=== PATIENT | male | born 1965 | race Caucasian/White ===

== ENCOUNTER 2020-04-19 12:13 | Inpatient (IN) | payer BC, OTHER ==
[~2020-04-19 12:13] MED LIST: Iopamidol-370 76% 500 ML 1 ML ONE
[2020-04-19] MEDS ORDERED: cefTRIAXone\\ROCEPHIN 1 GM VIAL ONE (13:13)
[2020-04-19] MEDS ORDERED: Azithromycin 500 MG VIAL ONE (13:13)
[2020-04-19] MEDS ORDERED: Acetaminophen 500 MG TAB ONE (13:13)
[2020-04-19 13:50] LABS: #Lymphocytes 0.4 thou/uL (1.20-3.40); #Monocytes 0.5 thou/uL (0.11-0.59); #Neutrophils 4.5 thou/uL (1.40-6.50); %Basophils 0.1 % (0.0-1.0); %Eosinophils 0.1 % (0.0-10.0); %Lymphocytes 8.3 % (21.0-51.0); %Neutrophils 82.7 % (42.0-75.0); Hemoglobin 14.5 g/dL (14.0-18.0); Mean Corpuscular HGB CONC 33.8 g/dL (32.0-36.0); Mean Corpuscular Hemoglobin 31.1 pg (27.0-31.0); Mean Corpuscular Volume 91.9 fL (78.0-98.0); Mean Platelet Volume 7.8 fL (7.4-10.4); Platelet Count 172 thou/uL (130-400); RBC Distribution Width 11.8 % (11.5-14.5); Red Blood Cell (RBC) Count 4.66 mill/uL (4.70-6.10); White Blood Cell (WBC) Count 5.4 thou/uL (4.8-10.8)
[2020-04-19] MEDS ORDERED: Dexamethasone 4 mg/ml Vial ONE (14:13)
[2020-04-19 14:38] LABS: ALT (SGPT) 27 U/L (8-55); AST (SGOT) 37 U/L (5-34); Alkaline Phosphatase 47 U/L (40-110); Anion Gap 17 mmol/L (10-20); BUN (Urea Nitrogen) 11 mg/dL (8.4-25.7); Bilirubin, Total 0.7 mg/dL (0.2-1.2); Calc. Creatinine Clearance 0 mL/min (70-130); Calcium 8.4 mg/dL (7.8-10.44); Carbon Dioxide 22 mmol/L (22-29); Chloride 98 mmol/L (98-107); Globulin 2.6 g/dL (2.4-3.5); Glucose 140 mg/dL (70-105); Potassium 4.2 mmol/L (3.5-5.1); Protein, Total 6.6 g/dL (6.0-8.3); Sodium 133 mmol/L (136-145)
--- NOTE | 2020-04-19 15:08 | CT ---
CT ANGIO OF CHEST PERFORMED WITH IV CONTRAST ENHANCEMENT WITH 3D RECONSTRUCTIONS: Date: 04/19/2020 HISTORY: Cough, fever, and chills. Tested positive for COVID 1 week ago and has been getting worse. FINDINGS: There is fairly extensive bilateral lower lobe predominant ground-glass opacities. Relative sparing o f the right upper lobe. No pleural effusion. No significant mediastinal or hilar adenopathy. The thoracic aorta is normal in caliber. Good pulmonary artery opacification. No CT evidence for pulmonary embolus. Visualized liver parenchyma shows no focal findings. IMPRESSION: Diffuse ground-glass infiltrates compatible with COVID pneumonia. POS: NGOC
[2020-04-19 15:32] LABS: SARS-CoV-2 NAA Rapid Test DETECTED (NotDetected)
--- NOTE | 2020-04-19 16:16 | PDOC.HHP ---
Hospitalist HPI - History of Present Illness SOB History of Present Illness: Mr. Recinos is a 54-year-old male but the past medical history of hypertension, hyperlipidemia, tobacco use, alcohol use who presents with shortness of breath. Patient was tested positive for Covid 1 week ago and symptoms started also at that time. Patient reports that the past few days he has developed worsening shortness of breath and worsening fevers. Patient endorses dry cough, fevers, chills, malaise and body aches. Has been taking ibuprofen at home. He denies chest pain, palpitations. Denies changes in vision lower extremity swelling or numbness/weakness or paresthesias. Emergency room initial vital signs 153/85, 100, 30, 100.6, 94% on room air. Lactic acid 1.0, BNP 11.2. White blood cell count 5.4. H/H 14.5/42.8. BUN/CR 11/0.9. Glucose 140. Sodium 133, potassium 4.2. CT angiogram negative for any pulmonary embolism but did show findings of Covid pneumonia. Patient with new oxygen requirement of 2 L nasal cannula. Hospitalist Results - Labs Result Diagrams: 04/19/20 13:38 04/19/20 13:38 Lab results: WBC 5.4 thou/uL (4.8-10.8) 04/19/20 13:38 Hgb 14.5 g/dL (14.0-18.0) 04/19/20 13:38 Hct 42.8 % (42.0-52.0) 04/19/20 13:38 MCV 91.9 fL (78.0-98.0) 04/19/20 13:38 Plt Count 172 thou/uL (130-400) 04/19/20 13:38 Neutrophils % 82.7 % (42.0-75.0) H 04/19/20 13:38 Sodium 133 mmol/L (136-145) L 04/19/20 13:38 Potassium 4.2 mmol/L (3.5-5.1) 04/19/20 13:38 Chloride 98 mmol/L (98-107) 04/19/20 13:38 Carbon Dioxide 22 mmol/L (22-29) 04/19/20 13:38 BUN 11 mg/dL (8.4-25.7) 04/19/20 13:38 Creatinine 0.79 mg/dL (0.7-1.3) 04/19/20 13:38 Glucose 140 mg/dL (70-105) H 04/19/20 13:38 Lactic Acid 1.0 mmol/L (0.5-2.2) 04/19/20 13:38 Calcium 8.4 mg/dL (7.8-10.44) 04/19/20 13:38 Total Bilirubin 0.7 mg/dL (0.2-1.2) 04/19/20 13:38 AST 37 U/L (5-34) H 04/19/20 13:38 ALT 27 U/L (8-55) 04/19/20 13:38 Alkaline Phosphatase 47 U/L (40-110) 04/19/20 13:38 B-Natriuretic Peptide 11.2 pg/mL (0-100) 04/19/20 13:38 Serum Total Protein 6.6 g/dL (6.0-8.3) 04/19/20 13:38 Albumin 4.0 g/dL (3.5-5.0) 04/19/20 13:38 Hospitalist H&P A/P - Plan Plan: COVID-19 pneumonia 54year-old male with comorbidities of hypertension, hyperlipidemia, tobacco use, alcohol use who tested positive for Covid 1 week ago symptoms began approximately 8 days ago. Patient with worsening shortness of breath requiring oxygen. Currently saturating in 94% on 2 L nasal cannula. CTA negative for pulmonary embolism, but did show evidence of COVID-19 pneumonia. Lactic acid 1.0. Patient febrile to 100.6 with ibuprofen. Patient received Decadron, ceftriaxone, azithromycin in the emergency room. We will admit patient for moderate to severe COVID-19. Plan Continue dexamethasone Continue CAP coverage with ceftriaxone and azithromycin Supplemental oxygen We will see if candidate for remdesivir Tylenol, dextromethorphan Closely monitor respiratory status Acute respiratory failure with hypoxia Patient presented hypoxic and tachypneic to emergency room secondary to COVID-19 pneumonia. Patient with new oxygen requirement of 2 L nasal cannula. We will continue with plan as above and closely monitor respiratory status. Plan Treatment as above Closely monitor respiratory status Supplemental oxygen as needed Hypertension History of HTN. Patient not on any home mediations. Hyperlipidemia Hx of HLD. Not on any home medications. Tobacco use History of tobacco use. Will make nicotine patch available as needed. Patient counseled on smoking cessation. Alcohol dependence Patient reports daily alcohol use with 5-6 beers nightly. Last drink day prior to admission. Will place patient on ASE protocol supplement magnesium, thiamine, vitamin B12. Plan ASE protocol Vitamin B12, magnesium Thiamine DVT prophylaxisLovenox Full code Case discussed with Dr. Bowen.
[2020-04-19] MEDS ORDERED: Ondansetron ODT 4 MG TAB PO PRN (16:59)
[2020-04-19] MEDS ORDERED: Loperamide HCl 2 MG CAP PO PRN (16:59)
[2020-04-19 19:21] LABS: CRP (Inflammatory) 9.08 mg/dL (= or < 0.5); Magnesium 2.2 mg/dL (1.6-2.6)
[2020-04-19 20:58] VITALS: BMI 25.4
[2020-04-19] MEDS: Enoxaparin Sodium 40 MG/0.4 ML SYRINGE SC SCH (21:27)
[2020-04-20 06:01] LABS: Anion Gap 12 mmol/L (10-20); BUN (Urea Nitrogen) 11 mg/dL (8.4-25.7); Calc. Creatinine Clearance 129 mL/min (70-130); Calcium 8.5 mg/dL (7.8-10.44); Carbon Dioxide 26 mmol/L (22-29); Chloride 101 mmol/L (98-107); Glucose 150 mg/dL (70-105); Sodium 135 mmol/L (136-145)
[2020-04-20 07:22] LABS: Hemoglobin 14.6 g/dL (14.0-18.0); Mean Corpuscular HGB CONC 34.2 g/dL (32.0-36.0); Mean Corpuscular Hemoglobin 31.7 pg (27.0-31.0); Mean Corpuscular Volume 92.7 fL (78.0-98.0); Mean Platelet Volume 8.2 fL (7.4-10.4); Platelet Count 177 thou/uL (130-400); RBC Distribution Width 11.7 % (11.5-14.5)
[2020-04-20] MEDS ORDERED: Dexamethasone 4 MG TAB PO SCH (08:00)
[2020-04-20] MEDS: Enoxaparin Sodium 40 MG/0.4 ML SYRINGE SC SCH ×2 (08:40→19:49)
[2020-04-20] MEDS: Thiamine 100 MG TAB PO SCH (08:41)
[2020-04-20] MEDS: Cyanocobalamin (Vitamin B-12) 1,000 MCG TAB PO SCH (08:41)
[2020-04-20] MEDS: Ascorbic Acid 500 mg Chewable Tablet PO SCH (08:41)
[2020-04-20] MEDS ORDERED: ALPRAZolam 0.25 MG TAB PO PRN (09:42)
[2020-04-20 11:33] LABS: Band 15 % (5-11); Lymphocytes 15 % (21-51); MDiff Complete? YES; Monocytes 11 % (0-10); Neutrophil 50 % (42-75); Platelet Morphology Comment Appears Adequate; RBC Morphology Normal; Reactive Lymphocytes 9 % (0-10)
[2020-04-20] MEDS: Cholecalciferol 1,000 UNITS (25 MCG) TAB PO SCH (15:20)
[2020-04-20] MEDS: Acetaminophen 325 MG TAB PO PRN (18:05)
[2020-04-20 20:43] LABS: ALT (SGPT) 38 U/L (8-55); AST (SGOT) 36 U/L (5-34); Albumin 3.6 g/dL (3.5-5.0); Alkaline Phosphatase 45 U/L (40-110); Bilirubin, Direct 0.2 mg/dL (0.1-0.3); Bilirubin, Total 0.5 mg/dL (0.2-1.2); Protein, Total 6.6 g/dL (6.0-8.3)
[2020-04-20] MEDS ORDERED: REMDESIVIR (EUA) 200 MG in Sodium Chloride 0.9% 250 ML 210 ML IV SCH (22:00)
[2020-04-21] MEDS: Acetaminophen 325 MG TAB PO PRN ×2 (03:27→08:11)
[2020-04-21 05:31] LABS: #Lymphocytes 0.7 thou/uL (1.20-3.40); #Monocytes 0.6 thou/uL (0.11-0.59); #Neutrophils 4.9 thou/uL (1.40-6.50); %Eosinophils 0.1 % (0.0-10.0); %Lymphocytes 11.7 % (21.0-51.0); %Monocytes 9.9 % (0.0-10.0); %Neutrophils 78.2 % (42.0-75.0); Hemoglobin 13.6 g/dL (14.0-18.0); Mean Corpuscular HGB CONC 35.1 g/dL (32.0-36.0); Mean Corpuscular Hemoglobin 31.9 pg (27.0-31.0); Mean Corpuscular Volume 91.1 fL (78.0-98.0); Mean Platelet Volume 8.1 fL (7.4-10.4); Platelet Count 199 thou/uL (130-400); RBC Distribution Width 11.7 % (11.5-14.5); Red Blood Cell (RBC) Count 4.26 mill/uL (4.70-6.10); White Blood Cell (WBC) Count 6.3 thou/uL (4.8-10.8)
[2020-04-21 05:43] LABS: ALT (SGPT) 32 U/L (8-55); AST (SGOT) 28 U/L (5-34); Albumin 3.3 g/dL (3.5-5.0); Alkaline Phosphatase 39 U/L (40-110); Anion Gap 13 mmol/L (10-20); BUN (Urea Nitrogen) 15 mg/dL (8.4-25.7); Bilirubin, Direct 0.2 mg/dL (0.1-0.3); Bilirubin, Total 0.5 mg/dL (0.2-1.2); Calc. Creatinine Clearance 114 mL/min (70-130); Calcium 8.2 mg/dL (7.8-10.44); Carbon Dioxide 25 mmol/L (22-29); Chloride 100 mmol/L (98-107); Glucose 94 mg/dL (70-105); Potassium 3.2 mmol/L (3.5-5.1); Protein, Total 6.1 g/dL (6.0-8.3); Sodium 135 mmol/L (136-145)
[2020-04-21] MEDS: Folic Acid 1 MG TAB PO SCH (07:55)
[2020-04-21] MEDS: Cyanocobalamin (Vitamin B-12) 1,000 MCG TAB PO SCH (07:56)
[2020-04-21] MEDS: Dexamethasone 4 mg/ml Vial SLOW IVP SCH (07:56)
[2020-04-21] MEDS: Ascorbic Acid 500 mg Chewable Tablet PO SCH (07:56)
[2020-04-21] MEDS: Cholecalciferol 1,000 UNITS (25 MCG) TAB PO SCH (07:56)
[2020-04-21] MEDS: Enoxaparin Sodium 40 MG/0.4 ML SYRINGE SC SCH ×2 (07:56→21:46)
[2020-04-21] MEDS: Thiamine 100 MG TAB PO SCH (07:56)
--- NOTE | 2020-04-21 08:02 | PDOC.HOSPP ---
- Subjective Encounter Date: 04/20/20 Encounter Time: 12:45 Subjective: Patient up in bed denies any complaints. - Objective Vital Signs & Weight: Vital Signs (12 hours) Temp Pulse Resp BP Pulse Ox 04/21/20 03:50 92 L 04/21/20 03:20 102.6 F H 76 18 139/70 92 L 04/20/20 23:30 98.9 F 78 16 133/73 94 L Weight Admit Weight 177 lb 3.2 oz Weight 177 lb 3.2 oz I&O: 04/20/20 04/21/20 04/22/20 06:59 06:59 06:59 Intake Total 380 2100 Output Total 2200 Balance 380 -100 Result Diagrams: 04/21/20 04:58 04/21/20 04:58 Hospitalist ROS - Review of Systems Cardiovascular: denies: chest pain, palpitations, orthopnea, paroxysmal noc. dyspnea, edema, light headedness, other Gastrointestinal: denies: nausea, vomiting, abdominal pain, diarrhea, constip ation, melena, hematochezia, other Genitourinary: denies: dysuria, frequency, incontinence, hematuria, retention, other - Medication Medications: Active Medications Generic Name Dose Route Start Last Admin Trade Name Freq PRN Reason Stop Dose Admin Acetaminophen 650 mg 04/19/20 16:59 04/21/20 03:27 Acetaminophen 325 Mg Tab PO 650 mg Q4H PRN Administration Headache/Fever/Mild Pain (1-3) Alprazolam 0.25 mg 04/20/20 09:42 04/20/20 19:49 Alprazolam 0.25 Mg Tab PO 0.25 mg TIDPRN PRN Administration Anxiety Ascorbic Acid 1,000 mg 04/20/20 09:00 04/21/20 07:56 Ascorbic Acid 500 Mg Chewable Tablet PO 1,000 mg DAILY MEREDITH Administration Cholecalciferol 1,000 units 04/20/20 09:00 04/21/20 07:56 Cholecalciferol 1,000 Units (25 Mcg) Tab PO 1,000 units DAILY MEREDITH Administration Cyanocobalamin 1,000 mcg 04/20/20 09:00 04/21/20 07:56 Cyanocobalamin (Vitamin B-12) 1,000 Mcg Tab PO 1,000 mcg DAILY MEREDITH Administration Dexamethasone 6 mg 04/21/20 09:00 04/21/20 07:56 Dexamethasone 4 Mg/Ml Vial SLOW IVP 6 mg DAILY MEREDITH Administration Enoxaparin Sodium 40 mg 04/19/20 21:00 04/21/20 07:56 Enoxaparin Sodium 40 Mg/0.4 Ml Syringe SC 40 mg 0900,2099 MEREDITH Administration Folic Acid 1 mg 04/21/20 09:00 04/21/20 07:55 Folic Acid 1 Mg Tab PO 1 mg DAILY MEREDITH Administration Thiamine HCl 100 mg 04/20/20 09:00 04/21/20 07:56 Thiamine 100 Mg Tab PO 100 mg DAILY MEREDITH Administration - Exam Neck: negative: supple, symmetric, no JVD, no thyromegaly, no lymphadenopathy, no carotid bruit, JVD Heart: negative: RRR, no murmur, no gallops, no rubs, normal peripheral pulses, irregular, diminshed peripheral pulses, murmur present, II/IV, III/IV Respiratory: negative: CTAB, no wheezes, no rales, no ronchi, normal chest expansion, no tachypnea, normal percussion, rales, rhonchi, tachypneic, wheezes Gastrointestinal: negative: soft, non-tender, non-distended, normal bowel sounds, no palpable masses, no hepatomegaly, no splenomegaly, no bruit, no guarding, no rigidity, tender to palpation, distended, diminished bowl sounds, voluntary guarding Hosp A/P (1) Acute respiratory failure with hypoxia Code(s): J96.01 - ACUTE RESPIRATORY FAILURE WITH HYPOXIA Status: Acute (2) COVID-19 Code(s): U07.1 - COVID-19 Status: Acute - Plan Spoke with patient in detail about starting him on remdesivir. Patient init ially refused however later in the evening patient spiked a fever and wanted the treatment to be started. Pharmacy was contacted and patient has been started on remdesivir. Patient on DVT prophylaxis.
--- NOTE | 2020-04-21 17:24 | PDOC.HOSPP ---
- Subjective Encounter Date: 04/21/20 Encounter Time: 09:00 Subjective: Patient seen for follow-up regarding acute hypoxic respiratory failure. He reports feeling better. Reports cough that is productive of sputum. Reports fever. - Objective Vital Signs & Weight: Vital Signs (12 hours) Temp Pulse Resp BP Pulse Ox 04/21/20 15:38 99.6 F 83 18 132/70 96 04/21/20 11:25 99.9 F H 79 16 126/71 98 04/21/20 08:10 100.2 F H 79 18 127/90 93 L Weight Admit Weight 177 lb 3.2 oz Weight 177 lb 3.2 oz I&O: 04/20/20 04/21/20 04/22/20 06:59 06:59 06:59 Intake Total 380 2100 480 Output Total 2200 375 Balance 380 -100 105 Result Diagrams: 04/21/20 04:58 04/21/20 04:58 Additional Labs: I reviewed patient's labs and MAR EKG Reviewed by me: Yes (Normal sinus rhythm on telemetry) Hospitalist ROS - Review of Systems Constitutional: reports: fever. denies: chills, sweats, weakness, malaise Respiratory: reports: cough, sputum. denies: dry, shortness of breath, hemoptysis, SOB with excertion, pleuritic pain, wheezing - Medication Medications: Active Medications Generic Name Dose Route Start Last Admin Trade Name Freq PRN Reason Stop Dose Admin Acetaminophen 650 mg 04/19/20 16:59 04/21/20 08:11 Acetaminophen 325 Mg Tab PO 650 mg Q4H PRN Administration Headache/Fever/Mild Pain (1-3) Alprazolam 0.25 mg 04/20/20 09:42 04/20/20 19:49 Alprazolam 0.25 Mg Tab PO 0.25 mg TIDPRN PRN Administration Anxiety Ascorbic Acid 1,000 mg 04/20/20 09:00 04/21/20 07:56 Ascorbic Acid 500 Mg Chewable Tablet PO 1,000 mg DAILY MEREDITH Administration Cholecalciferol 1,000 units 04/20/20 09:00 04/21/20 07:56 Cholecalciferol 1,000 Units (25 Mcg) Tab PO 1,000 units DAILY MEREDITH Administration Cyanocobalamin 1,000 mcg 04/20/20 09:00 04/21/20 07:56 Cyanocobalamin (Vitamin B-12) 1,000 Mcg Tab PO 1,000 mcg DAILY MEREDITH Administration Dexamethasone 6 mg 04/21/20 09:00 04/21/20 07:56 Dexamethasone 4 Mg/Ml Vial SLOW IVP 6 mg DAILY MEREDITH Administration Enoxaparin Sodium 40 mg 04/19/20 21:00 04/21/20 07:56 Enoxaparin Sodium 40 Mg/0.4 Ml Syringe SC 40 mg 0900,2100 MEREDITH Administration Folic Acid 1 mg 04/21/20 09:00 04/21/20 07:55 Folic Acid 1 Mg Tab PO 1 mg DAILY MEREDITH Administration Thiamine HCl 100 mg 04/20/20 09:00 04/21/20 07:56 Thiamine 100 Mg Tab PO 100 mg DAILY MEREDITH Administration - Exam General Appearance: awake alert Eye: anicteric sclera ENT: moist mucosa Neck: supple Heart: RRR Respiratory: rales, rhonchi Gastrointestinal: soft Skin: no rashes Psychiatric: normal affect, normal behavior Hosp A/P - Plan -Assessment (1) Acute respiratory failure with hypoxia Code(s): J96.01 - ACUTE RESPIRATORY FAILURE WITH HYPOXIA Status: Acute (2) COVID-19 Code(s): U07.1 - COVID-19 Status: Acute - Plan Patient was started on remdesivir yesterday, continue. Continue vitamin C, start zinc. Continue vitamin D. Follow LFTs. Follow inflammatory markers. Continue dexamethasone.
[2020-04-21] MEDS ORDERED: Zinc Sulfate 220 MG CAP PO SCH (17:30)
[2020-04-21] MEDS: REMDESIVIR (EUA) 100 MG in Sodium Chloride 0.9% 250 ML 230 ML IV SCH (21:47)
[2020-04-22 05:12] LABS: Anion Gap 15 mmol/L (10-20); BUN (Urea Nitrogen) 14 mg/dL (8.4-25.7); Calc. Creatinine Clearance 135 mL/min (70-130); Calcium 8.8 mg/dL (7.8-10.44); Carbon Dioxide 25 mmol/L (22-29); Chloride 100 mmol/L (98-107); Glucose 111 mg/dL (70-105); Potassium 3.8 mmol/L (3.5-5.1); Sodium 136 mmol/L (136-145)
[2020-04-22 05:14] LABS: ALT (SGPT) 34 U/L (8-55); AST (SGOT) 30 U/L (5-34); Albumin 3.4 g/dL (3.5-5.0); Alkaline Phosphatase 40 U/L (40-110); Bilirubin, Direct 0.2 mg/dL (0.1-0.3); Bilirubin, Total 0.4 mg/dL (0.2-1.2); Protein, Total 6.2 g/dL (6.0-8.3)
[2020-04-22 05:42] LABS: Band 14 % (5-11); Lymphocytes 22 % (21-51); MDiff Complete? YES; Mean Corpuscular HGB CONC 34.4 g/dL (32.0-36.0); Mean Corpuscular Hemoglobin 31.4 pg (27.0-31.0); Mean Corpuscular Volume 91.5 fL (78.0-98.0); Mean Platelet Volume 7.8 fL (7.4-10.4); Monocytes 5 % (0-10); Neutrophil 59 % (42-75); Platelet Count 235 thou/uL (130-400); Platelet Morphology Comment Appears Adequate; RBC Distribution Width 11.7 % (11.5-14.5); Red Blood Cell (RBC) Count 4.47 mill/uL (4.70-6.10); White Blood Cell (WBC) Count 5.8 thou/uL (4.8-10.8)
[2020-04-22] MEDS: Ascorbic Acid 500 mg Chewable Tablet PO SCH (07:22)
[2020-04-22] MEDS: Dexamethasone 4 mg/ml Vial SLOW IVP SCH (07:23)
[2020-04-22] MEDS: Cyanocobalamin (Vitamin B-12) 1,000 MCG TAB PO SCH (07:23)
[2020-04-22] MEDS: Cholecalciferol 1,000 UNITS (25 MCG) TAB PO SCH (07:23)
[2020-04-22] MEDS: Thiamine 100 MG TAB PO SCH (07:24)
[2020-04-22] MEDS: Folic Acid 1 MG TAB PO SCH (07:24)
[2020-04-22] MEDS: Zinc Sulfate 220 MG CAP PO SCH (07:24)
[2020-04-22] MEDS: Enoxaparin Sodium 40 MG/0.4 ML SYRINGE SC SCH ×2 (07:24→20:30)
--- NOTE | 2020-04-22 17:10 | PDOC.HOSPP ---
- Subjective Encounter Date: 04/22/20 Encounter Time: 09:30 Subjective: Patient seen for follow-up for acute hypoxic respiratory failure. He reports feeling better. - Objective Vital Signs & Weight: Vital Signs (12 hours) Temp Pulse Resp BP BP BP Pulse Ox 04/22/20 11:55 98.4 F 62 24 H 137/78 98 04/22/20 08:00 141/77 H 04/22/20 07:49 98.4 F 63 20 141/77 H 95 Weight Admit Weight 177 lb 3.2 oz Weight 177 lb 3.2 oz I&O: 04/21/20 04/22/20 04/23/20 06:59 06:59 06:59 Intake Total 2100 780 717 Output Total 2200 900 Balance -100 -120 717 Result Diagrams: 04/22/20 04:32 04/22/20 04:32 Additional Labs: Labs and MAR reviewed by me EKG Reviewed by me: Yes (Telemetry shows normal sinus rhythm) Hospitalist ROS - Review of Systems Respiratory: reports: cough, dry. denies: shortness of breath, hemoptysis, SOB with excertion, pleuritic pain, sputum, wheezing Cardiovascular: denies: chest pain, palpitations, orthopnea, paroxysmal noc. dyspnea, edema, light headedness Gastrointestinal: denies: nausea, vomiting, abdominal pain, diarrhea, constipation, melena, hematochezia - Medication Medications: Active Medications Generic Name Dose Route Start Last Admin Trade Name Freq PRN Reason Stop Dose Admin Acetaminophen 650 mg 04/19/20 16:59 04/21/20 08:11 Acetaminophen 325 Mg Tab PO 650 mg Q4H PRN Administration Headache/Fever/Mild Pain (1-3) Alprazolam 0.25 mg 04/20/20 09:42 04/20/20 19:49 Alprazolam 0.25 Mg Tab PO 0.25 mg TIDPRN PRN Administration Anxiety Ascorbic Acid 1,000 mg 04/20/20 09:00 04/22/20 07:22 Ascorbic Acid 500 Mg Chewable Tablet PO 1,000 mg DAILY MEREDITH Administration Cholecalciferol 1,000 units 04/20/20 09:00 04/22/20 07:23 Cholecalciferol 1,000 Units (25 Mcg) Tab PO 1,000 units DAILY MEREDITH Administration Cyanocobalamin 1,000 mcg 04/20/20 09:00 04/22/20 07:23 Cyanocobalamin (Vitamin B-12) 1,000 Mcg Tab PO 1,000 mcg DAILY MEREDITH Administration Dexamethasone 6 mg 04/21/20 09:00 04/22/20 07:23 Dexamethasone 4 Mg/Ml Vial SLOW IVP 6 mg DAILY MEREDITH Administration Enoxaparin Sodium 40 mg 04/19/20 21:00 04/22/20 07:24 Enoxaparin Sodium 40 Mg/0.4 Ml Syringe SC 40 mg 0900,2100 MEREDITH Administration Folic Acid 1 mg 04/21/20 09:00 04/22/20 07:24 Folic Acid 1 Mg Tab PO 1 mg DAILY MEREDITH Administration Remdesivir 100 mg/ Sodium 250 mls @ 250 mls/hr 04/21/20 22:00 04/21/20 21:47 Chloride IV 04/24/20 22:59 250 mls 2200 MEREDITH Administration Sodium Chloride 10 ml 04/19/20 16:59 04/22/20 07:25 Flush - Normal Saline 10 Ml Syringe IVF 10 ml PRN PRN Administration Saline Flush Thiamine HCl 100 mg 04/20/20 09:00 04/22/20 07:24 Thiamine 100 Mg Tab PO 100 mg DAILY MEREDITH Administration Zinc Sulfate 220 mg 04/22/20 09:00 04/22/20 07:24 Zinc Sulfate 220 Mg Cap PO 220 mg DAILY MEREDITH Administration - Exam General Appearance: awake alert Eye: anicteric sclera ENT: moist mucosa Neck: supple Heart: RRR Respiratory: CTAB Gastrointestinal: soft, non-tender Skin: no rashes Psychiatric: normal affect, normal behavior Hosp A/P - Plan -Assessment (1) Acute respiratory failure with hypoxia Code(s): J96.01 - ACUTE RESPIRATORY FAILURE WITH HYPOXIA Status: Acute (2) COVID-19 Code(s): U07.1 - COVID-19 Status: Acute - Plan Continue remdesivir, 3 more doses left. Patient is clinically improving. Continue vitamin C and zinc. Continue vitamin D. Follow LFTs. Follow inflammatory markers. Patient is on dexamethasone.
[2020-04-22] MEDS: REMDESIVIR (EUA) 100 MG in Sodium Chloride 0.9% 250 ML 230 ML IV SCH (23:16)
[2020-04-22] MEDS: Guaifenesin DM 100-10/5 ML UDCUP PO PRN (23:17)
[2020-04-23 05:42] LABS: ALT (SGPT) 53 U/L (8-55); AST (SGOT) 38 U/L (5-34); Albumin 3.2 g/dL (3.5-5.0); Alkaline Phosphatase 46 U/L (40-110); Bilirubin, Direct 0.2 mg/dL (0.1-0.3); Bilirubin, Total 0.5 mg/dL (0.2-1.2); Protein, Total 6.4 g/dL (6.0-8.3)
[2020-04-23] MEDS: Enoxaparin Sodium 40 MG/0.4 ML SYRINGE SC SCH ×2 (07:45→20:44)
[2020-04-23] MEDS: Cholecalciferol 1,000 UNITS (25 MCG) TAB PO SCH (07:45)
[2020-04-23] MEDS: Ascorbic Acid 500 mg Chewable Tablet PO SCH (07:45)
[2020-04-23] MEDS: Folic Acid 1 MG TAB PO SCH (07:46)
[2020-04-23] MEDS: Cyanocobalamin (Vitamin B-12) 1,000 MCG TAB PO SCH (07:46)
[2020-04-23] MEDS: Thiamine 100 MG TAB PO SCH (07:46)
[2020-04-23] MEDS: Dexamethasone 4 mg/ml Vial SLOW IVP SCH (07:46)
[2020-04-23] MEDS: Zinc Sulfate 220 MG CAP PO SCH (07:46)
[2020-04-23] MEDS ORDERED: Cepastat Lozenges 1 LOZ PO PRN (12:05)
[2020-04-23] MEDS ORDERED: Cepastat Lozenges 1 LOZ PO SCH (12:15)
--- NOTE | 2020-04-23 17:10 | PDOC.HOSPP ---
- Subjective Encounter Date: 04/23/20 Encounter Time: 11:00 Subjective: Patient seen for follow-up hypoxic respiratory failure. Denies any new complaints. - Objective Vital Signs & Weight: Vital Signs (12 hours) Temp Pulse Resp BP Pulse Ox 04/23/20 11:30 98.5 F 65 24 H 125/75 98 04/23/20 07:40 98.7 F 55 L 24 H 136/84 97 Weight Admit Weight 177 lb 3.2 oz Weight 177 lb 3.2 oz I&O: 04/22/20 04/23/20 04/24/20 06:59 06:59 06:59 Intake Total 780 1437 Output Total 900 600 Balance -120 837 Result Diagrams: 04/22/20 04:32 04/22/20 04:32 Additional Labs: I reviewed patient's labs and MAR EKG Reviewed by me: Yes (Normal sinus rhythm on telemetry) Hospitalist ROS - Review of Systems Respiratory: reports: cough, dry, SOB with excertion. denies: shortness of breath, hemoptysis, pleuritic pain, sputum, wheezing Cardiovascular: denies: chest pain, palpitations, orthopnea, paroxysmal noc. dyspnea, edema, light headedness - Medication Medications: Active Medications Generic Name Dose Route Start Last Admin Trade Name Freq PRN Reason Stop Dose Admin Acetaminophen 650 mg 04/19/20 16:59 04/21/20 08:11 Acetaminophen 325 Mg Tab PO 650 mg Q4H PRN Administration Headache/Fever/Mild Pain (1-3) Alprazolam 0.25 mg 04/20/20 09:42 04/20/20 19:49 Alprazolam 0.25 Mg Tab PO 0.25 mg TIDPRN PRN Administration Anxiety Ascorbic Acid 1,000 mg 04/20/20 09:00 04/23/20 07:45 Ascorbic Acid 500 Mg Chewable Tablet PO 1,000 mg DAILY MEREDITH Administration Cholecalciferol 1,000 units 04/20/20 09:00 04/23/20 07:45 Cholecalciferol 1,000 Units (25 Mcg) Tab PO 1,000 units DAILY MEREDITH Administration Cyanocobalamin 1,000 mcg 04/20/20 09:00 04/23/20 07:46 Cyanocobalamin (Vitamin B-12) 1,000 Mcg Tab PO 1,000 mcg DAILY MEREDITH Administration Dexamethasone 6 mg 04/21/20 09:00 04/23/20 07:46 Dexamethasone 4 Mg/Ml Vial SLOW IVP 6 mg DAILY MEREDITH Administration Enoxaparin Sodium 40 mg 04/19/20 21:00 04/23/20 07:45 Enoxaparin Sodium 40 Mg/0.4 Ml Syringe SC 40 mg 0900,2100 MEREDITH Administration Folic Acid 1 mg 04/21/20 09:00 04/23/20 07:46 Folic Acid 1 Mg Tab PO 1 mg DAILY MEREDITH Administration Guaifenesin/Dextromethorphan 15 ml 04/19/20 17:03 04/22/20 23:17 Guaifenesin Dm 100-10/5 Ml Udcup PO 15 ml Q4H PRN Administration Cough Remdesivir 100 mg/ Sodium 250 mls @ 250 mls/hr 04/21/20 22:00 04/22/20 23:16 Chloride IV 04/24/20 22:59 250 mls 2200 MEREDITH Administration Sodium Chloride 10 ml 04/19/20 16:59 04/22/20 07:25 Flush - Normal Saline 10 Ml Syringe IVF 10 ml PRN PRN Administration Saline Flush Thiamine HCl 100 mg 04/20/20 09:00 04/23/20 07:46 Thiamine 100 Mg Tab PO 100 mg DAILY MEREDITH Administration Zinc Sulfate 220 mg 04/22/20 09:00 04/23/20 07:46 Zinc Sulfate 220 Mg Cap PO 220 mg DAILY MEREDITH Administration - Exam General Appearance: awake alert ENT: no oropharyngeal lesions Neck: supple Heart: RRR Respiratory: CTAB Gastrointestinal: soft, non-tender Skin: no rashes Psychiatric: normal affect Hosp A/P - Plan -Assessment (1) Acute respiratory failure with hypoxia Code(s): J96.01 - ACUTE RESPIRATORY FAILURE WITH HYPOXIA Status: Acute (2) COVID-19 Code(s): U07.1 - COVID-19 Status: Acute - Plan Patient has clinically improved significantly. Remdesivir course to be completed tomorrow night. Continue vitamin C and vitamin D and zinc. Continue dexamethasone. Evaluate for oxygen requirements while ambulating tomorrow.
[2020-04-23] MEDS: Guaifenesin DM 100-10/5 ML UDCUP PO PRN (20:49)
[2020-04-23] MEDS: REMDESIVIR (EUA) 100 MG in Sodium Chloride 0.9% 250 ML 230 ML IV SCH (22:25)
[2020-04-24 04:53] LABS: #Basophils 0.1 thou/uL (0.0-0.2); #Eosinphils 0.1 thou/uL (0.0-0.7); #Lymphocytes 1.4 thou/uL (1.20-3.40); #Monocytes 0.8 thou/uL (0.11-0.59); #Neutrophils 4.9 thou/uL (1.40-6.50); %Basophils 0.9 % (0.0-1.0); %Eosinophils 0.8 % (0.0-10.0); %Lymphocytes 19.4 % (21.0-51.0); %Monocytes 11.2 % (0.0-10.0); %Neutrophils 67.6 % (42.0-75.0); Hemoglobin 14.7 g/dL (14.0-18.0); Mean Corpuscular HGB CONC 32.8 g/dL (32.0-36.0); Mean Corpuscular Hemoglobin 29.9 pg (27.0-31.0); Mean Corpuscular Volume 91.2 fL (78.0-98.0); Mean Platelet Volume 7.6 fL (7.4-10.4); Platelet Count 373 thou/uL (130-400); RBC Distribution Width 12.1 % (11.5-14.5); Red Blood Cell (RBC) Count 4.91 mill/uL (4.70-6.10); White Blood Cell (WBC) Count 7.2 thou/uL (4.8-10.8)
[2020-04-24 05:15] LABS: Anion Gap 13 mmol/L (10-20); BUN (Urea Nitrogen) 17 mg/dL (8.4-25.7); CRP (Inflammatory) 1.65 mg/dL (= or < 0.5); Calc. Creatinine Clearance 126 mL/min (70-130); Calcium 8.5 mg/dL (7.8-10.44); Carbon Dioxide 26 mmol/L (22-29); Chloride 100 mmol/L (98-107); Glucose 100 mg/dL (70-105); Magnesium 2.2 mg/dL (1.6-2.6); Potassium 4.2 mmol/L (3.5-5.1); Sodium 135 mmol/L (136-145)
[2020-04-24 05:18] LABS: ALT (SGPT) 72 U/L (8-55); AST (SGOT) 45 U/L (5-34); Albumin 3.4 g/dL (3.5-5.0); Alkaline Phosphatase 45 U/L (40-110); Bilirubin, Direct 0.2 mg/dL (0.1-0.3); Bilirubin, Total 0.5 mg/dL (0.2-1.2); Protein, Total 6.2 g/dL (6.0-8.3)
[2020-04-24] MEDS: Enoxaparin Sodium 40 MG/0.4 ML SYRINGE SC SCH ×2 (09:35→20:53)
[2020-04-24] MEDS: Cyanocobalamin (Vitamin B-12) 1,000 MCG TAB PO SCH (09:35)
[2020-04-24] MEDS: Zinc Sulfate 220 MG CAP PO SCH (09:36)
[2020-04-24] MEDS: Ascorbic Acid 500 mg Chewable Tablet PO SCH (09:36)
[2020-04-24] MEDS: Folic Acid 1 MG TAB PO SCH (09:36)
[2020-04-24] MEDS: Dexamethasone 4 mg/ml Vial SLOW IVP SCH (09:36)
[2020-04-24] MEDS: Cholecalciferol 1,000 UNITS (25 MCG) TAB PO SCH (09:36)
[2020-04-24] MEDS: Thiamine 100 MG TAB PO SCH (09:36)
--- NOTE | 2020-04-24 18:04 | PDOC.HOSPP ---
- Subjective Encounter Date: 04/24/20 Encounter Time: 18:02 Subjective: Patient seen for follow-up for hypoxic respiratory failure. He reports feeling well. Denies any chest pain or shortness of breath. - Objective Vital Signs & Weight: Vital Signs (12 hours) Temp Pulse Resp BP Pulse Ox 04/24/20 12:00 98.7 F 69 24 H 129/77 93 L 04/24/20 09:40 98.3 F 72 24 H 118/70 93 L Weight Admit Weight 177 lb 3.2 oz Weight 177 lb 3.2 oz I&O: 04/23/20 04/24/20 04/25/20 06:59 06:59 06:59 Intake Total 1437 2130 Output Total 600 900 Balance 837 1230 Result Diagrams: 04/24/20 04:24 04/24/20 04:24 Additional Labs: Labs and MAR reviewed by me EKG Reviewed by me: Yes (Telemetry shows normal sinus rhythm) Hospitalist ROS - Review of Systems Respiratory: reports: cough, dry. denies: shortness of breath, hemoptysis, SOB with excertion, pleuritic pain, sputum, wheezing Cardiovascular: denies: chest pain, palpitations, orthopnea, paroxysmal noc. dyspnea, edema, light headedness - Medication Medications: Active Medications Generic Name Dose Route Start Last Admin Trade Name Freq PRN Reason Stop Dose Admin Acetaminophen 650 mg 04/19/20 16:59 04/21/20 08:11 Acetaminophen 325 Mg Tab PO 650 mg Q4H PRN Administration Headache/Fever/Mild Pain (1-3) Alprazolam 0.25 mg 04/20/20 09:42 04/20/20 19:49 Alprazolam 0.25 Mg Tab PO 0.25 mg TIDPRN PRN Administration Anxiety Ascorbic Acid 1,000 mg 04/20/20 09:00 04/24/20 09:36 Ascorbic Acid 500 Mg Chewable Tablet PO 1,000 mg DAILY MEREDITH Administration Cholecalciferol 1,000 units 04/20/20 09:00 04/24/20 09:36 Cholecalciferol 1,000 Units (25 Mcg) Tab PO 1,000 units DAILY MEREDITH Administration Cyanocobalamin 1,000 mcg 04/20/20 09:00 04/24/20 09:35 Cyanocobalamin (Vitamin B-12) 1,000 Mcg Tab PO 1,000 mcg DAILY MEREDITH Administration Dexamethasone 6 mg 04/21/20 09:00 04/24/20 09:36 Dexamethasone 4 Mg/Ml Vial SLOW IVP 6 mg DAILY MEREDITH Administration Enoxaparin Sodium 40 mg 04/19/20 21:00 04/24/20 09:35 Enoxaparin Sodium 40 Mg/0.4 Ml Syringe SC 40 mg 09,2100 MEREDITH Administration Folic Acid 1 mg 04/21/20 09:00 04/24/20 09:36 Folic Acid 1 Mg Tab PO 1 mg DAILY MEREDITH Administration Guaifenesin/Dextromethorphan 15 ml 04/19/20 17:03 04/23/20 20:49 Guaifenesin Dm 100-10/5 Ml Udcup PO 15 ml Q4H PRN Administration Cough Remdesivir 100 mg/ Sodium 250 mls @ 250 mls/hr 04/21/20 22:00 04/23/20 22:25 Chloride IV 04/24/20 22:59 250 mls 2200 MEREDITH Administration Sodium Chloride 10 ml 04/19/20 16:59 04/22/20 07:25 Flush - Normal Saline 10 Ml Syringe IVF 10 ml PRN PRN Administration Saline Flush Thiamine HCl 100 mg 04/20/20 09:00 04/24/20 09:36 Thiamine 100 Mg Tab PO 100 mg DAILY MEREDITH Administration Zinc Sulfate 220 mg 04/22/20 09:00 04/24/20 09:36 Zinc Sulfate 220 Mg Cap PO 220 mg DAILY MEREDITH Administration - Exam Eye: anicteric sclera ENT: normocephalic atraumatic, moist mucosa Neck: supple, symmetric, no thyromegaly Heart: RRR Respiratory: CTAB Gastrointestinal: soft, non-tender Skin: no rashes Musculoskeletal: normal tone Psychiatric: normal affect, normal behavior Hosp A/P - Plan -Assessment (1) Acute respiratory failure with hypoxia Code(s): J96.01 - ACUTE RESPIRATORY FAILURE WITH HYPOXIA Status: Acute (2) COVID-19 Code(s): U07.1 - COVID-19 Status: Acute - Plan Patient improving clinically. Last dose of remdesivir tonight, April 24, 2020. We will assess for home oxygen tomorrow. Likely home tomorrow.
[2020-04-24] MEDS: REMDESIVIR (EUA) 100 MG in Sodium Chloride 0.9% 250 ML 230 ML IV SCH (21:21)
[2020-04-25 05:34] LABS: ALT (SGPT) 150 U/L (8-55); AST (SGOT) 79 U/L (5-34); Albumin 3.6 g/dL (3.5-5.0); Alkaline Phosphatase 56 U/L (40-110); Bilirubin, Direct 0.2 mg/dL (0.1-0.3); Bilirubin, Total 0.5 mg/dL (0.2-1.2); Protein, Total 6.6 g/dL (6.0-8.3)
[2020-04-25] MEDS: Enoxaparin Sodium 40 MG/0.4 ML SYRINGE SC SCH (08:38)
[2020-04-25] MEDS: Ascorbic Acid 500 mg Chewable Tablet PO SCH (08:38)
[2020-04-25] MEDS: Dexamethasone 4 mg/ml Vial SLOW IVP SCH (08:38)
[2020-04-25] MEDS: Cyanocobalamin (Vitamin B-12) 1,000 MCG TAB PO SCH (08:39)
[2020-04-25] MEDS: Cholecalciferol 1,000 UNITS (25 MCG) TAB PO SCH (08:39)
[2020-04-25] MEDS: Folic Acid 1 MG TAB PO SCH (08:39)
[2020-04-25] MEDS: Zinc Sulfate 220 MG CAP PO SCH (08:39)
[2020-04-25] MEDS: Thiamine 100 MG TAB PO SCH (08:39)
--- NOTE | 2020-04-25 11:17 | PDOC.DS.DS ---
Provider - Provider Date of Admission: 04/19/20 16:04 Date of Discharge: 04/25/20 Admitting Provider: Birdie Bowen MD Primary Care Physician: Roberto Almaraz MD Course - Hospital Course Hospital Course: Discharge diagnosis: 1. Acute hypoxic respiratory failure 2. COVID-19 pneumonia 3. Hyponatremia 4. Transaminitis Hospital course: Patient is a pleasant 51-year-old gentleman who was admitted to the hospital on April 19, 2020 for COVID-19 pneumonia causing acute hypoxic respiratory failure. CT scan of the chest at the time of admission showed diffuse groundglass infiltrates compatible with Covid pneumonia. He was started on de xamethasone, zinc, vitamin C and vitamin D. He also received a course of remdesivir. He was not needing supplemental oxygen on the day of discharge even after ambulation. He is advised to follow-up with his primary care provider in 3 days time. He is also advised to have his LFTs checked in 5 days. He is AST and ALT increased slightly, AST was 79 on the day of discharge and ALT was 150 on the day of discharge. This is most likely secondary to remdesivir therapy. Discharge destination: Home Total amount of time spent coordinating this discharge: 25 minutes Resuscitation Status: 04/19/20 16:59 Resuscitation Status Routine Co-Sign Provider: Resuscitation Status: FULL: Full Resuscitation - Labs Lab Results: 04/24/20 04:24 04/24/20 04:24 Abnormal Lab Results - Last 48 hrs 04/24/20 04:24: AST 45 H, ALT 72 H, Albumin 3.4 L 04/24/20 04:24: Lactate Dehydrogenase 310 H 04/24/20 04:24: Sodium 135 L, C-Reactive Protein 1.65 H 04/24/20 04:24: Ferritin 1059.03 H 04/24/20 04:24: D-Dimer 0.93 H 04/24/20 04:24: Lymphocytes % 19.4 L, Monocytes % 11.2 H, Monocytes # 0.8 H 04/25/20 04:45: AST 79 H, ALT 150 H Microbiology - Entire Visit 04/19/20 13:38 Venous blood - Left Hand Blood Culture - Final NO GROWTH IN 5 DAYS 04/19/20 13:38 Venous blood - Right Hand Blood Culture - Final NO GROWTH IN 5 DAYS - Physical Exam Vitals: Vital Signs (12 hours) Temp Pulse Resp BP BP BP Pulse Ox 04/25/20 08:45 98.2 F 86 24 H 120/74 120/74 95 04/25/20 03:06 97.7 F 58 L 16 117/75 96 Weight Admit Weight 177 lb 3.2 oz Weight 177 lb 3.2 oz Physical Exam: The patient was seen and examined on the day of discharge. Patient denies chest pain or shortness of breath. Vital signs are stable. S1 and S2 are heard. Lungs are clear to auscultation bilaterally. Plan - Discharge Medications Prescriptions: Aspirin [Aspirin EC] 325 mg PO DAILY #7 tablet. Dexamethasone 6 mg PO DAILY #5 tablet Ascorbic Acid [Vitamin C] 1,000 mg PO DAILY #5 tablet Cholecalciferol (Vitamin D3) [Vitamin D3] 1,000 unit PO DAILY #5 capsule Zinc Sulfate [Zinc-220] 220 mg PO DAILY #5 capsule Home Medications: Medication Instructions Recorded Confirmed Type ALPRAZolam [Xanax] 0.25 mg PO TID PRN 04/19/20 04/19/20 History Ascorbic Acid [Vitamin C] 1,000 mg PO DAILY #5 tablet 04/25/20 Rx Aspirin [Aspirin EC] 325 mg PO DAILY #7 tablet. 04/25/20 Rx Cholecalciferol (Vitamin D3) 1,000 unit PO DAILY #5 capsule 04/25/20 Rx [Vitamin D3] Dexamethasone 6 mg PO DAILY #5 tablet 04/25/20 Rx Zinc Sulfate [Zinc-220] 220 mg PO DAILY #5 capsule 04/25/20 Rx Allergies: No Known Allergies Allergy (Verified 04/19/20 21:26) per pt - Follow up Plan Referrals: Tj Cuevas MD [Active] - 3 Days (Call office to schedule appointment. Bring a copy of your discharge paperwork, including your current medication list.) Disposition: HOME Quality - Care Measures CORE MEASURES:: N/A
[2020-04-25 11:38] VITALS: BP 116/67; TEMP 98.4
--- NOTE | 2020-04-30 10:37 | EKG ---
Test Reason : Blood Pressure : / mmHG Vent. Rate : 073 BPM Atrial Rate : 073 BPM P-R Int : 128 ms QRS Dur : 074 ms QT Int : 384 ms P-R-T Axes : 049 -08 -17 degrees QTc Int : 423 ms Normal sinus rhythm Minimal voltage criteria for LVH, may be normal variant Nonspecific ST and T wave abnormality Abnormal ECG Confirmed by TYREE CASEY, CORA Snow ([id number]), news videotape editor ANAY LAZO ([id number]) on 04/30/2020 10:37:37 AM Referred By: Confirmed By:CORA CLEMENTS MD
== END 2020-04-25 11:51 | disposition home or self-care (01) | DRG 177 ==
LOC: ERS 12:13 → ERHOLD 16:04 → 2SW 20:35
PROVIDERS: ADMIT Internal Medicine; ATTEND Internal Medicine
PROC: 8E0ZXY6 Isolation (ICD-10-PCS; 2020-04-19)
PROC: XW033E5 Introduction of Remdesivir Anti-infective into Peripheral Vein, Percutaneous Approach, New Technology Group 5 (ICD-10-PCS; principal; 2020-04-20)
DX: U07.1 COVID-19 (principal); J12.89 Other viral pneumonia; J96.01 Acute respiratory failure with hypoxia; E87.1 Hypo-osmolality and hyponatremia; Z23 Encounter for immunization; E78.5 Hyperlipidemia, unspecified; E78.00 Pure hypercholesterolemia, unspecified; F41.9 Anxiety disorder, unspecified; F17.220 Nicotine dependence, chewing tobacco, uncomplicated; I10 Essential (primary) hypertension; F10.20 Alcohol dependence, uncomplicated; R74.01 Elevation of levels of liver transaminase levels; Z79.899 Other long term (current) drug therapy
CPT/HCPCS: 0240U; 36415; 71275; 80048; 80053; 80076; 82728; 83605; 83615; 83735; 83880; 85025; 85379; 86140; 87040; 90471; 90732; 93005; 96365; 96375; G0009; J0456; J0696; J1100; J1650; J7050; J8540; Q9967